=== PATIENT | male | born 1960 | race Native Hawaiian/Other Pacific Islander ===

== ENCOUNTER → 2020-06-14 | Outpatient (CLI) | payer OTHER ==
[~2020-06-14] MED LIST: ADVAIR 250-501 EACH INH; CIALIS5 MG PO; FLONASE 0.05%50 MCG NASAL; LEVOXYL75 MCG PO; SINGULAIR 10 MG10 M1 PO
== END ==
LOC: LAB 13:55
PROVIDERS: ATTEND Student in an Organized Health Care Education/Training Program
DX: Z01.812 Encounter for preprocedural laboratory examination (principal); Z11.59 Encounter for screening for other viral diseases

== ENCOUNTER 2020-06-19 08:52 | Inpatient (IN) | payer OTHER ==
[~2020-06-19] VITALS: Ht 188 cm; Wt 107.5 kg
[2020-06-19 09:38] VITALS: BP 141/93
[2020-06-19 14:47] VITALS: BP 132/78
[2020-06-19 16:19] VITALS: BP 141/93
--- NOTE | 2020-06-19 16:41 | NUR ---
PATIENT ARRIVED TO THE UNIT PER OR, REPORT FROM LIV BLAIR/RN. PATIENT HAD LEFT HIP SURGERY/DR MARIN. PATIENT ALERT AND ORIENTED VITAL SIGNS ARE STABLE. PATIENT C/O SOME NAUSEA BUT IMPROVING/COOL TOWELS APPLIED TO FOREHEAD. NO ADMIT OR DISCHARGE ORDER IN COMPUTER. THIS RN NOTIFIED DR MARIN FOR DISCHARGE ORDER, SPOKE TO DANIELLE/LEILA WHO RETURNED CALL AND DIDN'T UNDERSTAND WHY PATIENT CAME TO THE FLOOR, RECEIVED ANOTHER CALL PATIENT WAS NOT SUPPOSE TO COME TO THE UNIT. DANIELLE/LEILA PUT DISCHARGE ORDER IN THE COMPUTER. IV REMOVED AND PATIENT GIVEN DISCHARGE PAPERWORK, PRESENT. PATIENT TAKEN DOWN TO HIS CAR. ANDRES/NURSE AGILE PROJECT MANAGER INFORMED ON SITUATION.
--- NOTE | 2020-06-19 22:37 | O ---
[address] [address] OPERATIVE REPORT Name: TEJINDER FELICIANO I Room #: 447-P [facility] M.R.#: [id number] Admission: 06/19/20 Attend Phys: Rosendo Jaimes MD Discharge: 06/19/20 Date of : 64 Report #: [id number] THIS REPORT FOR: cc: ALAINA - Family physician unknown FAM - Family physician unknown Rosendo Jaimes MD ~ CC: ALAINA unknown Rosendo Jaimes DATE OF SERVICE: 06/19/2020 SERVICE: Orthopedics. FACILITY: [facility]. SURGEON: Rosendo Jaimes MD RESIDENTIAL CAREGIVER: Fani Kwong NP INDICATION FOR RESIDENTIAL CAREGIVER: Extremity positioning, arthroscope management, assistance with the procedure. PREOPERATIVE DIAGNOSES: 1. Left hip pain. 2. Left hip iliopsoas tendonitis. 3. Status post left total hip arthroplasty. POSTOPERATIVE DIAGNOSES: 1. Left hip pain. 2. Left hip iliopsoas tendonitis. 3. Status post left total hip arthroplasty. PROCEDURES: 1. Left hip arthroscopic iliopsoas tendon release. 2. Left hip arthroscopic synovectomy. COMPLICATIONS: None. DRAINS: None. SPECIMENS: Synovial tissue sent for permanent. FINDINGS: 1. Successful iliopsoas release. 2. Anterior capsular scarring. Limited synovitis was noted and treated with resection. [address] [address] OPERATIVE REPORT Name: TEJINDER FELICIANO I Room #: 447-P [facility] [id number] Admission: 06/19/20 Attend Phys: Rosendo Jaimes MD Discharge: 06/19/20 Date of : 64 Report #: [id number] 3. Stable implants without signs of infection. INDICATIONS: The patient is a 59-year-old gentleman with history of a painful left total hip arthroplasty. He had a workup negative for infection and loosening. He had exhausted conservative measures and ultimately he wished to undergo definitive surgical treatment where we discussed iliopsoas tendon release after he had had a previous injection along the tendon sheath. The risks, benefits, alternatives and indications for surgery were discussed with him in detail. Risks include but are not limited to pain, bleeding, infection, injury to nerves or blood vessels, persistent pain despite surgical intervention, failure of any repairs, need for further surgery including revision as well as complications related to anesthesia. Despite these risks, he wished to proceed. PROCEDURE IN DETAIL: After left lower extremity was correctly identified in the preoperative holding as the operative extremity, the patient was taken to the operating room and general anesthesia was induced without complications. He was padded appropriately. Prophylactic antibiotics were administered at appropriate time. Left leg was then prepped and draped in standard sterile fashion. Time-out procedure was performed. Traction was not utilized for this hip as there was a total hip in place. C-arm was used to localize the portals and the anterolateral portal was established under fluoroscopic visualization and then with triangulation, a second portal was established in the anteromedial position at the base of the femoral head component. Shaver and cautery were used to obtain access through the anterior capsule and then the femoral neck was visualized as was the base of the ceramic head. Shaver was used to excise the scar tissue and capsule anteriorly and then the synovium was resected as well. There was no synovitis medially or anteriorly. There was some mild synovitis laterally. This was resected with the shaver after I had taken a biopsy with a biter. The hip component appeared stable throughout. I continued with the lysis of adhesions and then the synovectomy working up proximally and medially towards the articulation. This appeared normal. I then continued with the debridement working medially until the iliopsoas musculotendinous junction could be visualized and then cautery was used to perform an iliopsoas tendon lengthening. I then continued with the resection around the top of the anterior femoral head component until the poly could be fully seen and then the metal acetabular component could be visualized. I noted that there was a significant exposure of the anterior portion of the metal cup without any anterior bony coverage and this extended medially to the level of the iliopsoas tendon as well and extended laterally for the majority of the anterior half of the acetabular component. There was no evidence of loosening or infection. There were no fractures. After full inspection was completed, the debridement was then finalized as was the synovectomy with the shaver and then the arthroscopic effusion was drained. The instruments were removed. Portal sites were closed. Sterile dressing was applied. The patient [address] [address] OPERATIVE REPORT Name: TEJINDER FELICIANO I Room #: 447-P [facility] M.R.#: [id number] Admission: 06/19/20 Attend Phys: Rosendo Jaimes MD Discharge: 06/19/20 Date of : 64 Report #: [id number] was awakened from anesthesia and taken to the recovery room in stable condition. No complications. All counts were reported as correct. <ELECTRONICALLY SIGNED> By: Rosendo Jaimes MD 06/19/20 2237 [id number] 1408 Rosendo Jaimes MD /nt
--- NOTE | 2020-06-20 18:06 | PATH ---
[facility] [address] [place] [address] PATHOLOGY RPT PROCEDURE Name: TEJINDER HADDAD I Room #: 447-P [facility] M.R.#: [id number] Admission: 06/19/20 Date of : 64 Discharge: 06/19/20 Report #: [id number] Path Case #: [id number] [facility] Accession Number: [id number] . 01 Material submitted: . hip - LEFT TOTAL HIP SYNOVIUM. Modifiers: left . 01 Clinical history: . psoas tendinitis, pain in left hip . 02 Diagnosis: Synovium, left total hip synovium, biopsy: - Mild chronic inflammation associated with reactive synovial hyperplasia. - No increase in neutrophils within the infiltrate (less than 5/HPF). . (IUV:mml; 06/20/2020) QLM 06/20/2020 1404 Local . 02 Electronically signed: . Lita Cifuentes MD, Pathologist NPI- [id number] . 01 Gross description: . The specimen is received in formalin, labeled "Tejinder Haddad", "left total hip synovium". Received are multiple fragments of glistening, pale nascimento possible bone and soft tissue, measuring 1.5 x 1.2 x 0.1 cm in aggregate dimensions. The specimen is filtered and entirely submitted in cassette A1, following light decalcification.([facility], [facility]; 06/19/2020) RADHA/SAURABH 06/19/2020 1828 Local . 02 Pathologist provided ICD-10: M65.9 . 02 CPT . 485639, [id number] Specimen Comment: A courtesy copy of this report has been sent to [phone] Specimen Comment: Report sent to Performed at: [address], [place] [id number] MD Khari Perez MD Phone: [phone] Performed at: [address] [id number] MD Lita Cifuentes MD Phone: [phone]
== END 2020-06-19 16:54 | disposition home or self-care (01) | DRG 482 ==
LOC: PRE 08:52 → TBA 08:53 → PRE 11:35 → 4S 14:52 → PRE 17:03
PROVIDERS: ADMIT Orthopaedic Surgery Sports Medicine; ATTEND Orthopaedic Surgery Sports Medicine
PROC: 0L8K4ZZ Division of Left Hip Tendon, Percutaneous Endoscopic Approach (ICD-10-PCS; principal; 2020-06-19)
PROC: 0SB Lower Joints, Excision (ICD-10-PCS; principal; 2020-06-19)
DX: M76.12 Psoas tendinitis, left hip (principal); M65.852 Other synovitis and tenosynovitis, left thigh; Z96.642 Presence of left artificial hip joint; Z88.0 Allergy status to penicillin
CPT/HCPCS: 10102; 50010; 50386; 51320; 51538; 52001; 52304; 52313; 56524; 56527; 57092; 57103